=== PATIENT | female | born 1980 | race African-American/Black ===

== ENCOUNTER 2018-10-16 21:42 | Emergency (ER) | payer OTHER ==
[~2018-10-16] VITALS: Ht 170.2 cm; Wt 63.0 kg
[2018-10-17] MEDS ORDERED: OLANZAPINE 5MG TABLET ODT PO ONE (00:45)
[2018-10-17 08:22] VITALS: BP 101/65
== END 2018-10-17 12:00 ==
LOC: ER 22:37
DX: R45.851 Suicidal ideations (principal); S09.8XXA Other specified injuries of head, initial encounter; M25.552 Pain in left hip; Y04.2XXA Assault by strike against or bumped into by another person, initial encounter; Y93.89 Activity, other specified; Y92.198 Other place in other specified residential institution as the place of occurrence of the external cause; F17.210 Nicotine dependence, cigarettes, uncomplicated
CPT/HCPCS: 99285